=== PATIENT | female | born 1960 | race Caucasian/White ===

== ENCOUNTER 2022-05-12 20:47 | Emergency (ER) | payer MEDICAID, SELFPAY ==
--- NOTE | ~2022-05-12 | XR_ITS ---
EXAMINATION: XR TIBIA AND FIBULA, LEFT CLINICAL INFORMATION: Status post fall 3 weeks ago. COMPARISON: None TECHNIQUE: AP and lateral views of the left tibia and fibula were obtained. FINDINGS: There is a minimally displaced distal fibular metaphysis fracture with mild adjacent callus formation. The medial malleolus is unremarkable. The tibiotalar joint space is unremarkable. The tarsal bones are normally aligned. There is mild soft tissue swelling. XR/XR tibia fibula LT 2V IMPRESSION: Minimally displaced distal fibular metaphysis fracture with evidence for mild healing.
[2022-05-12 20:59] VITALS: BP 124/88; PULSE 84; O2SAT 99
[2022-05-12 21:00] VITALS: BP 147/64; PULSE 90; RESP 20; TEMP 36.8; O2SAT 98; BMI 25.2
[2022-05-12 21:29] VITALS: BP 158/78; PULSE 85; RESP 18; TEMP 36.9; O2SAT 98
--- NOTE | 2022-05-12 21:31 | ED.LOWEXIN ---
HPI - Extremity Injury (Lower) General Chief Complaint: Extremity Injury, Lower Stated Complaint: left leg fracture Time Seen by Provider: 05/12/22 21:18 Source: patient Mode of arrival: EMS Limitations: no limitations History of Present Illness HPI Narrative: Patient came from rehab for new healing fracture left fibula. A bridge patient fell 4 days ago and had ankle fracture last week patient fell again and a repeat x-ray showed new healing fracture and sent here for evaluation. Patient is wearing the boot otherwise and walks with crutches or wheelchair no other injuries Related Data Allergies Allergy/AdvReac Type Severity Reaction Status Date / Time No Known Allergies Allergy Verified 05/12/22 21:36 Review of Systems Review of Systems: Yes all other systems are reviewed and are negative, unobtainable due to endotracheal tube, Unobtainable due to mental condition, Unobtainable due to mental status and Other [facility] Social History Social History Advance Directives: No Advance Directives Information Provided: No Physical Exam Vital Signs: Vital Signs: Last Vital Signs Temp 98.4 F 05/12/22 21:29 Pulse 85 05/12/22 21:29 Resp 18 05/12/22 21:29 BP 158/78 H 05/12/22 21:29 Pulse Ox 98 05/12/22 21:29 O2 Del Method 05/12/22 21:29 BMI result Body Mass Index 25.2 Appearance: Alert. Oriented X3. No acute distress. Eyes: PERRLA, No Nystagmus ENT: Pharynx normal. Oral Mucosa moist Neck: Normal inspection. Neck supple. CVS: Normal heart rate and rhythm. Pulses normal. Respiratory: No respiratory distress. Equal air entry bilateral, no wheezing/rales/rhonchi Abdomen: Soft and nontender. Bowel sounds are present, no mass palpable, no CVA tenderness Skin: Skin warm and dry. Normal skin color. Normal skin turgor. Extremities: No lower extremity edema. No calf tenderness old residual weakness in the right tender to touch left lateral malleolus with soft tissue swelling Neuro: Oriented X 3. No motor deficit. No sensory deficit.No cerebellar signs , cranial nerves II-XII intact MDM - Extremity Injury (Lower) MDM Narrative Medical decision making narrative: Patient with L fibular fracture with recent fall repeat x-ray in the ER showed healing fracture with callus no new fracture seen will continue patient on ortho boot patient is using wheelchair at rehab Discharge Plan Discharge Clinical Impression: Ankle fracture Patient Disposition: Xfer Inpatient Rehab Fac Transfer Details: Continue to wear ortho boot Follow-up with sales and service specialist if pain continues your x-ray showed minimally displaced distal fibular fracure Instructions: Ankle Fracture (ED) Discharge Date/Time: 05/12/22 23:58
--- NOTE | 2022-05-12 23:27 | PC.NURSE ---
Lana called at 2318 for a bls transfer back to [facility] per . ETA of 45 minutes.Rn aware
== END 2022-05-12 23:58 ==
PROVIDERS: Emergency Provider Internal Medicine; PCP Family Medicine
DX: S82.402D Unspecified fracture of shaft of left fibula, subsequent encounter for closed fracture with routine healing (principal); W19.XXXD Unspecified fall, subsequent encounter; Z91.81 History of falling
CPT/HCPCS: 73590; 99283

== ENCOUNTER 2025-02-08 09:15 | Outpatient (AMB) | payer OTHER, SELFPAY ==
--- NOTE | 2025-02-08 09:31 | MHC.OFFVIS ---
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 She said that Botox injection was helping to take care of spasms affecting her right foot and leg, which sometime would wake her up. It was happening few times a month mostly at night. [facility] Medical History (Updated 02/08/25 @ 09:39 by Nubia Fuller MD) Mild cerebral palsy Hypertension Chronic static encephalopathy Review of Systems Const Details: Constitutional:?No fever, chills, fatigue, weight loss, or night sweats. HEENT:?No headache, vision changes, hearing loss, nasal congestion, sore throat. Neurological:? Muscle spasm and right leg and foot Psychiatric:?No anxiety, depression, mood swings, sleep disturbance, or hallucinations. Endocrine:?No heat/cold intolerance, polydipsia, polyuria, or hair/skin changes. Hematologic/Lymphatic:?No easy bruising, bleeding, or lymphadenopathy. Integumentary (Skin):?No rash, lesions, itching, or color changes. ? Physical Exam Neuro Other: Mental Status: Alert and oriented to person, place, and time. Normal attention. Normal spontaneous speech, fluency, and comprehension. No obvious issues with mood and memory. Affect is appropriate. Cranial Nerves: CN II: Visual flores full to confrontation, visual acuity intact. CN III, IV, : Pupils equal, round, reactive to light and accommodation. Extraocular movements are normal. CN V: Facial sensation is normal. CN VII: Facial movements symmetrical. CN VIII: Hearing intact to bedside conversation is normal. CN IX, X: Palate elevates symmetrically. CN XI: Shoulder shrug and head turn symmetrical. CN XII: Tongue midline without atrophy or fasciculations. Right extensor hallucis longus was weaker than left. Extrapyramidal: Full facial expressions and blinking. No rigidity. Movements are appropriate with no tremor or abnormality. Speech: Normal; no dysarthria or tremor. Office Procedures Botulinum toxin Injection Details: Indication:? Spasticity Preparation:?Botox? (onabotulinumtoxinA) reconstituted with 0.9% preservative-free normal saline to a final concentration of 200 IU Consent:?Risks (e.g., localized weakness, ptosis, injection site pain, flu-like symptoms), benefits, and alternatives were discussed in detail. The patient understood and gave verbal and written informed consent. Procedure: The patient was positioned comfortably. Target muscle groups were identified based on clinical examination and functional anatomy. The skin over the injection sites was cleaned with alcohol. No topical or local anesthetic was used unless otherwise stated. Botulinum toxin was injected using a sterile [30/27/25]-gauge needle into the muscles/sites as per standard protocol (Sites indicated on the diagram): Total Dose: 200 units Needle EMG guidance: Used Lot [id number] The patient tolerated the procedure well with no immediate complications. No significant bleeding, hematoma, or adverse reaction noted. Bandages applied as needed. 14918 - Extr 1-4 (Right leg multiple muscles - Please seen the detailed diagram for injection sites) 83779 - Needle Electromyography Procedure code (CPT) selection complete Assessment & Plan Assessment & Plan (1) Spasticity: Comment: Right leg spasticity treated with botox for decades. Dr. Romero's prescription: 125 IU in R tibialis post, 25 in soleus, 50 in EHL. Code(s): R25.2 - Cramp and spasm Category: Medical (2) Chronic static encephalopathy: Code(s): G93.49 - Other encephalopathy Category: Medical Plan Impression: Right leg spasticity resulting in foot and muscle spasm treated with Botox Recommendations: Botox 200 IU every 4-6 months Coding Level of Care Code Est Pt Level 4 (73103) Diagnoses Spasticity R25.2 Chronic static encephalopathy G93.49 CPT Codes Botox Injection - Botox 5: 99196 - Extr 1-4 ([id number]) Botox Injection - Botox 9: 82700 - Needle Electromyography ([id number])
[2025-02-08 09:48] VITALS: BMI 24.7
== END 2025-03-20 09:30 | disposition home or self-care (01) ==
PROVIDERS: PCP Family Medicine; Visit Provider Psychiatry & Neurology Neurology
DX: R25.2 Cramp and spasm (principal); G93.49 Other encephalopathy
CPT/HCPCS: 64642; 95874

== ENCOUNTER 2025-02-08 09:19 | Outpatient (REF) | payer OTHER, SELFPAY ==
--- NOTE | 2025-02-08 | EMG_ITS ---
Please see that has procedure note MTDD
== END 2025-02-08 09:20 | disposition home or self-care (01) ==
LOC: HO.NEURO 09:19
PROVIDERS: Visit Provider Psychiatry & Neurology Neurology
DX: G93.49 Other encephalopathy (principal); G80.8 Other cerebral palsy; I10 Essential (primary) hypertension; R25.2 Cramp and spasm
CPT/HCPCS: 64642; 95874; 95886

== ENCOUNTER 2025-05-16 11:17 | Outpatient (AMB) | payer OTHER, SELFPAY ==
--- NOTE | 2025-05-16 11:23 | A.OFFVIS_ITS ---
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 She said that Botox injection was helping to take care of spasms affecting her right foot and leg, which sometime would wake her up. It was happening few times a month mostly at night. She is presenting with glaucoma, currently in preparation for laser surgery scheduled for the of the coming month. She reports that her eyesight is worsening, which is being managed with the planned procedure. The exact timeline or onset of the glaucoma was not specified, and no additional associated symptoms were reported. The patient has a history of receiving Botox injections, the last of which was administered on February [address] Bunn. A follow-up appointment is scheduled for June [address] Little, who specializes in physical medicine rehabilitation, to continue her Botox treatment regimen, focusing on her left leg due to toe issues. [facility] Medical History (Updated 02/08/25 @ 09:39 by Nubia Fuller MD) Mild cerebral palsy Hypertension Chronic static encephalopathy Review of Systems Narrative - Eyes: Reports worsening eyesight; diagnosed with glaucoma. - Musculoskeletal: Reports left leg concern affecting the toe. Physical Exam Neuro Other: Mental Status: Alert and oriented to person, place, and time. Normal attention. Normal spontaneous speech, fluency, and comprehension. Cranial Nerves: CN II: Visual flores full to confrontation, visual acuity intact. CN III, IV, : Pupils equal, round, reactive to light and accommodation. Extraocular movements are normal. CN V: Facial sensation is normal. CN VII: Facial movements symmetrical. CN VIII: Hearing intact to bedside conversation is normal. CN IX, X: Palate elevates symmetrically. CN XI: Shoulder shrug and head turn symmetrical. CN XII: Tongue midline without atrophy or fasciculations. Extrapyramidal: Full facial expressions and blinking. No rigidity. Movements are appropriate with no tremor or abnormality. Speech: Normal; no dysarthria or tremor. Assessment & Plan Assessment & Plan (1) Chronic static encephalopathy: Code(s): G93.49 - Other encephalopathy Category: Medical Plan Impression: a: Chronic static encephalopathy, mild b: Spasticity Rec: She already has an appt to see Dr. Little for management of spasticity. Coding Level of Care Code Est Pt Level 3 (99958) Diagnoses Chronic static encephalopathy G93.49
== END 2025-05-16 11:32 | disposition home or self-care (01) ==
LOC: HO.HSM 11:18
PROVIDERS: Visit Provider Psychiatry & Neurology Neurology
DX: G93.49 Other encephalopathy (principal)
CPT/HCPCS: 99213

== ENCOUNTER → 2025-05-16 11:17 | Outpatient (BNVA) | payer OTHER, SELFPAY | PROVIDERS: Visit Provider Psychiatry & Neurology Neurology | DX: G93.49 Other encephalopathy (principal) | CPT/HCPCS: 99212 ==

== ENCOUNTER 2025-06-02 10:00 | Outpatient (AMB) | payer OTHER, SELFPAY ==
--- NOTE | 2025-06-02 10:05 | A.OFFVIS_ITS ---
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 Patient was referred by Neurology. At today's visit she states that for the past 20 years she has been living with bilateral leg pain but for the past couple of months the pain started to flair up. She noted that her left leg into her foot pain is now starting to flair up ever since her fall two years ago. Patient's noted that she has Botox injections from another location, mild relief. Patient would like to report at today's visit that she would like to add that she has glaucoma eye surgery coming up on 06/20/25. ? 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 History of glaucoma. The patient has a history of receiving Botox injections, the last of which was administered on February [address] Bunn. Referred to us by Dr. Fuller to continue injections, focusing on her left leg due to toe issues. Patient had injection with Dr. Fuller last January for the RIGHT side: 125 IU in R tibialis post, 25 in soleus, 50 in EHL. It did help but it was swollen after the injection. She can walk better, up 1/2 mile. Overall improved. Without injections, now more than 3 months ago, there is pain on right toes/foot. Toes curl down. Right big toe goes up. Left ankle fracture 2 years ago. No surgery. Spent time at subacute rehab 3 months. Left big toe extends up. Wears bilateral AFOs, new from 2 months ago. [facility] Medical History (Updated 06/02/25 @ 11:46 by Sulema Becerril MD) Mild cerebral palsy Hypertension Chronic static encephalopathy Review of Systems Const All systems reviewed & are unremarkable except as noted in HPI and below Physical Exam Exam Exam: Right ankle Yimi 1-2 for dorsiflexion and inversion. Right big toe extends up. Left ankle Yimi 1 only for dorsiflexion. Left big toe extensors. Vital Signs: BMI result Body Mass Index 22.1 Results Reviewed Results Reviewed: Ordering Physician: Sulema Little Date of Service: 06/02/25 Procedure(s): XR ankle LT 2V Accession Number(s): [id number] cc: Sulema Little~ Reason for Exam: Z87.81 - Personal history of (healed) traumatic fracture EXAMINATION: XR ANKLE, left CLINICAL INFORMATION: Z87.81 - Personal history of (healed) traumatic fracture COMPARISON: 05/12/2022 tibia and fibula x-ray TECHNIQUE: AP, lateral, and mortise views lower extremity joint, ankle. FINDINGS: Ankle mortise is congruent. There is no widening of the syndesmosis. Talar dome is intact. There are small Achilles and plantar fascial calcaneal enthesophyte(s). There is a healed fracture of the distal fibular metaphysis with mature callus. XR/XR ankle LT 2V IMPRESSION: No acute abnormality, healed distal fibular metaphyseal fracture. 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 Right slightly worse than left. Bilateral AFOs. We can continue botulinum toxin injections for right side and also start on left side. Tentative plan for: Right tibialis posterior 50 units, soleus 25 units, EHL 50 units. Left soleus 25 units, EHL 50 units. Total of 200 units. We will work on prior authorization and most likely schedule her for 1st week of June if we receive approval. I am not entirely sure if glaucoma is a contraindication to botulinum toxin injections. I have requested patient to ask more information from her o phthalmologist regarding what type of glaucoma she has. We will check x-ray today for left ankle to make sure fracture has healed. As of time writing this note, report has been received and shows healing of previous fracture. Assessment and plan discussed with patient, and patient was agreeable. All questions were answered thoroughly. Sulema Becerril MD, PADMINI Board Certified, [place] [employer] and [employer] (ABPMR) Board Certified, [place] [employer] Electro[employer] (ABEM) Orders: Orders XR ankle LT 2V Today Z87.81 - Personal history of (healed) traumatic fracture Coding Level of Care Code New Pt Level 4 (46913) Diagnoses Spastic diplegic cerebral palsy G80.1 Chronic static encephalopathy G93.49 History of fracture of left ankle Z87.81
[2025-06-02 10:14] VITALS: BMI 24.1
== END 2025-06-02 11:21 | disposition home or self-care (01) ==
LOC: HO.HOS 10:00
PROVIDERS: Visit Provider Physical Medicine & Rehabilitation
DX: G80.1 Spastic diplegic cerebral palsy (principal); G93.49 Other encephalopathy; Z87.81 Personal history of (healed) traumatic fracture
CPT/HCPCS: 99204

== ENCOUNTER 2025-06-02 10:00 | Outpatient (REF) | payer OTHER, SELFPAY ==
--- NOTE | ~2025-06-02 | XR_ITS ---
EXAMINATION: XR ANKLE, left CLINICAL INFORMATION: Z87.81 - Personal history of (healed) traumatic fracture COMPARISON: 05/12/2022 tibia and fibula x-ray TECHNIQUE: AP, lateral, and mortise views lower extremity joint, ankle. FINDINGS: Ankle mortise is congruent. There is no widening of the syndesmosis. Talar dome is intact. There are small Achilles and plantar fascial calcaneal enthesophyte(s). There is a healed fracture of the distal fibular metaphysis with mature callus. XR/XR ankle LT 2V IMPRESSION: No acute abnormality, healed distal fibular metaphyseal fracture. Electronically signed by: Marc Chow MD 06/02/2025 11:00 AM [facility]
== END 2025-06-02 10:01 | disposition home or self-care (01) ==
LOC: HO.HOSX 10:00
PROVIDERS: Visit Provider Physical Medicine & Rehabilitation
DX: G80.1 Spastic diplegic cerebral palsy (principal); G93.49 Other encephalopathy; Z87.81 Personal history of (healed) traumatic fracture
CPT/HCPCS: 73600; 99202

== ENCOUNTER → 2025-06-02 10:35 | Outpatient (BNV) | payer OTHER, SELFPAY | PROVIDERS: Visit Provider Radiology Diagnostic Radiology | DX: Z87.81 Personal history of (healed) traumatic fracture (principal) | CPT/HCPCS: 73600 ==